=== PATIENT | female | born 1995 | race Two or more races ===

== ENCOUNTER 2024-04-04 12:29 | Outpatient (CLI) | payer OTHER | END 2024-04-04 12:31 | disposition home or self-care (01) | LOC: PRENATAL 12:29 | PROVIDERS: ATTEND Obstetrics & Gynecology Maternal & Fetal Medicine | DX: O35.9XX0 Maternal care for (suspected) fetal abnormality and damage, unspecified, not applicable or unspecified (principal); O35.3XX0 Maternal care for (suspected) damage to fetus from viral disease in mother, not applicable or unspecified; O24.419 Gestational diabetes mellitus in pregnancy, unspecified control; O44.03 Complete placenta previa NOS or without hemorrhage, third trimester; O40.3XX0 Polyhydramnios, third trimester, not applicable or unspecified; Z3A.33 33 weeks gestation of pregnancy ==